=== PATIENT | male | born 1960 | race Caucasian/White ===

== ENCOUNTER 2018-05-17 06:57 | Day surgery (SDC) | payer BC, OTHER ==
[2018-05-17] MEDS ORDERED: BUPIVACAINE/EPI 0.5% 10 ML SOL INFIL ONE (07:19)
[2018-05-17] MEDS ORDERED: PROPOFOL 500 MG/50 ML EMU IV ONE (07:39)
[2018-05-17] MEDS ORDERED: LIDOCAINE HCL 1% MPF 30 SOL ONE (07:39)
[2018-05-17] MEDS ORDERED: FENTANYL 100MCG/2ML SOL ONE (08:03)
[2018-05-17 08:58] VITALS: BP 124/86; PULSE 58; RESP 20; TEMP 97; O2SAT 97
== END 2018-05-17 09:15 | disposition home or self-care (01) | DRG 951 ==
LOC: SURG 06:57
PROVIDERS: ATTEND Surgery
DX: Z12.11 Encounter for screening for malignant neoplasm of colon (principal); D17.0 Benign lipomatous neoplasm of skin and subcutaneous tissue of head, face and neck; D12.4 Benign neoplasm of descending colon
CPT/HCPCS: G0168; J3010; A6402; J2001; J2704